=== PATIENT | female | born 1990 | race Caucasian/White ===

== ENCOUNTER 2018-04-17 07:50 | Emergency (ER) | payer MEDICAID, SELFPAY ==
[2018-04-17 07:57] VITALS: BP 138/75; PULSE 68; RESP 16; TEMP 37; O2SAT 100
--- NOTE | 2018-04-17 08:22 | DI.RAD_ITS ---
SYMPTOM/DIAGNOSIS: COUGH 4 DAYS, CHEST DISCOMFORT PA AND LATERAL CHEST: 04/17/18 The heart is normal in size. The lungs are clear. The mediastinal structures and pleura appear intact. CONCLUSION: Normal chest.
--- NOTE | 2018-04-17 08:28 | ED.GENADUL_ITS ---
Discharge Plan Disposition Patient Disposition: HOME Discharge Details Chief Complaint: RespSymp Clinical Impression: Cough, Abrasion of right ear canal, Upper respiratory infection Primary Care Provider: Savanah Dove ED Provider: Giovanni Nunez Home Meds and New Rx's Prescriptions: No Action calcium carbonate [Calcium 600] 600 MG tablet 600 mg PO DAILY RF: 0 erythromycin 3.5 GM ointment 3.5 gm OS TID Qty: 1 RF: 0 tramadol 50 MG tablet 50 mg PO TID Qty: 10 RF: 0 Discharge Instructions Instructions: Upper Respiratory Infection (ED), Acute Cough (ED) Additional Instructions: Please contact your primary care physician to arrange follow-up. Return to the ER for any worsening or new concerning symptoms. Stand Alone Forms: Work Release Discharge Data Discharge Date/Time-TO BE ENTERED AT DEPARTURE: 04/17/18 09:05 Medical Decision Making 8:25 --27-year-old female here with cough for 4 days. Lungs clear to auscultation bilaterally. Saturating well no respiratory distress Patient also with some bleeding from her right ear. Unable to visualize tympanic membranes as external ear canal completely obstructed with impacted cerumen. There is a superficial abrasion to her right external canal that is the source of the bleeding. Bleeding has stopped. --Chest x-ray reviewed and interpreted by radiology: normal chest Suspect URI --Usual and customary discharge instructions were provided. Patient was instructed to maintain supportive care and allow for plenty of rest. She understands that she should return immediately should she have any worsening or new concerning symptoms. HPI General Mode of arrival: ambulatory . Date/Time Provider Initiated Documentation: 04/17/18 08:13 . Limitations to Documentation: no limitations . Information obtained by: patient . HPI Narrative: 27-year-old female presents with chief complaint of cough. Patient notes she has had cough for the past 4 days. Cough is nonproductive. No associated shortness of breath. She does have associated body aches and has had some pleuritic chest discomfort that is worse with coughing as well as discomfort in her upper abdomen with coughing. Symptoms are moderate. No modifiers. She also notes that she has had some bleeding from her right ear that started on the way home from work today. No associated fever. No ear pain. Related Data Home Medications Medication Instructions Recorded Confirmed calcium carbonate [Calcium] 600 mg PO DAILY 09/26/12 04/17/18 erythromycin 3.5 gm OS TID #1 tube 09/26/12 04/17/18 tramadol 50 mg PO TID #10 tab 09/26/12 04/17/18 Previous Rx's Medication Instructions Recorded erythromycin 3.5 gm OS TID #1 tube 09/26/12 tramadol 50 mg PO TID #10 tab 09/26/12 Allergies Allergy/AdvReac Type Severity Reaction Status Date / Time No Known Allergies Allergy Unverified 04/17/18 08:01 General Stated Complaint: RespSymp RONY: 4 Review of Systems Review of Systems All systems reviewed & are unremarkable except as noted in HPI and below Cardiovascular Denies dyspnea Respiratory Reports cough and Denies dyspnea PFSH Social History Smoking/Tobacco Use Status: Never Exam Const General: cooperative and no acute distress HENMT Head: normocephalic and atraumatic Ears: mastoids normal, no periauricular adenopathy, EAC abnormal cerumen impaction bilaterally and other (superficial abrasion with no active bleeding) and unable to visualize TM (cerumen impaction) bilaterally General nose exam: external nose normal Mouth: moist mucous membranes Throat: posterior oropharynx normal Eyes Conjunctivae: normal conjunctivae Sclera: normal sclerae EOM: EOM intact bilaterally Neck Neck: trachea midline and supple Resp Auscultation: clear to auscultation bilaterally, no rales, no rhonchi and no wheezes Cardio Jugular venous pressure: no JVD Rate: regular rate and not tachycardic Rhythm: regular rhythm GI Palpation: soft, not firm, no guarding, no masses, not rigid and nontender Skin General skin exam: no rashes or lesions noted Neuro General: alert, awake, oriented x3 and tone normal Extrem General: no edema Psych Appearance: grossly normal Mental Status: mental status grossly normal Speech and Movement: speech and movement normal Course Vital Signs Temperature 37 C 04/17/18 07:57 Pulse 68 04/17/18 07:57 Respiratory Rate 16 04/17/18 07:57 Blood Pressure 138/75 04/17/18 07:57 Pulse Oximetry 100 04/17/18 07:57 Temperature 37 C 04/17/18 07:57 Temperature Source Skin 04/17/18 07:57 Pulse 68 04/17/18 07:57 Respiratory Rate 16 04/17/18 07:57 Respiratory Effort Non-Labored 04/17/18 08:02 Respiratory Depth Normal 04/17/18 08:02 Blood Pressure 138/75 04/17/18 07:57 Blood Pressure Position Sitting 04/17/18 07:57 Pulse Oximetry 100 04/17/18 07:57 Oxygen Delivery Method Room Air 04/17/18 07:57 Oxygen Flow Rate 0 04/17/18 07:57 Pain Level 3 04/17/18 07:57
== END 2018-04-17 09:05 | disposition home or self-care (01) ==
PROVIDERS: Emergency Provider Student in an Organized Health Care Education/Training Program; PCP Nurse Practitioner Family
DX: R05 Cough (principal); S00.411A Abrasion of right ear, initial encounter; J06.9 Acute upper respiratory infection, unspecified; X58.XXXA Exposure to other specified factors, initial encounter
CPT/HCPCS: 99283; 71046; 99282

== ENCOUNTER 2018-06-19 12:23 | Outpatient (CLI) | payer MEDICAID, SELFPAY ==
--- NOTE | 2018-06-19 08:00 | DI.RAD_ITS ---
SYMPTOM/DIAGNOSIS: RT FINGER PAIN, M79.644, PT FEELS LUMP RIGHT HAND: Comparison is made with 07/10/08. No fracture or dislocation is seen. There is no evidence of foreign body. There may be some soft tissue swelling of the volar aspect of the finger. There is a smoothly marginated lucency in the proximal phalanx near the area marked. No suspicious findings are seen. IMPRESSION: Question of ventral soft tissue swelling over the area of the proximal phalanx.
== END 2018-06-19 12:43 ==
PROVIDERS: PCP Nurse Practitioner Family; Visit Provider Nurse Practitioner Family
DX: M79.644 Pain in right finger(s) (principal); M79.89 Other specified soft tissue disorders
CPT/HCPCS: 73130

== ENCOUNTER 2018-07-17 09:51 | Outpatient (CLI) | payer MEDICAID, SELFPAY ==
--- NOTE | 2018-07-17 09:25 | DI.RAD_ITS ---
SYMPTOM/DIAGNOSIS: RT HAND PAIN RIGHT HAND: Comparison is made with 06/19/18. A sponge is seen between the second and third fingers. No fracture or subluxation is seen.
== END 2018-07-17 10:11 ==
PROVIDERS: PCP Nurse Practitioner Family; Visit Provider Physician Assistant
DX: M79.641 Pain in right hand (principal)
CPT/HCPCS: 73120

== ENCOUNTER 2018-08-18 02:15 | Outpatient (CLI) | payer MEDICAID, SELFPAY ==
--- NOTE | 2018-08-18 14:00 | DI.US_ITS ---
SYMPTOMS/DIAGNOSIS: RIGHT BREAST CYST, N60.01, PAINFUL MASS X 2 WEEKS, OUTER ASPECT OF RIGHT BREAST AT 5 O'CLOCK RIGHT BREAST ULTRASOUND: There is a small palpable abnormality in the medial aspect of the chest wall adjacent to the breast, which appears superficial. The palpable abnormality corresponds to a 4 x 2 x 2 mm hypoechoic ovoid area, which is in a subcutaneous location. There is no vascularity. There is a question of a tract to the skin. The findings could represent a small sebaceous cyst.
== END 2018-08-18 02:35 ==
PROVIDERS: PCP Nurse Practitioner Family; Visit Provider Nurse Practitioner Family
DX: N60.01 Solitary cyst of right breast (principal); R22.2 Localized swelling, mass and lump, trunk
CPT/HCPCS: 76642

== ENCOUNTER 2018-11-02 10:18 | Outpatient (REF) | payer MEDICAID, SELFPAY ==
--- NOTE | 2018-11-02 09:30 | PAPFT_PTH ---
PATIENT: Debbie Sainz LOC: [facility] U#:[id number] AGE/SX: 28/F ROOM: RE11/02/[address]: Sukumar Peter : 1990 BED: DIS: 11/02/2018 SPEC #: [id number] RECD: 11/02/18 17:59 STATUS: EDGAR REQ #: [id number] SIDNEY: 11/02/18 09:[address]: Sukumar Peter DEPT: [facility] Cytology RECD BY: Lisa Mann Tissues: 1 - CX/ENDOCX FOR PAP SMEARS Procedures: PAP THIN PREP/UVM Screening HPV DNA PROBE Comments: [id number]
== END 2018-11-02 10:38 ==
LOC: NCHCN 10:18
PROVIDERS: PCP Nurse Practitioner Family; Visit Provider Nurse Practitioner Family
DX: Z12.4 Encounter for screening for malignant neoplasm of cervix (principal); Z11.51 Encounter for screening for human papillomavirus (HPV)
CPT/HCPCS: 88142; 87624

== ENCOUNTER 2020-05-28 15:19 | Outpatient (REF) | payer MEDICAID, SELFPAY ==
[2020-05-29 16:32] LABS: COVID-19 RT-PCR UVMMC Result Positive (Negative)
== END 2020-05-28 15:20 | disposition home or self-care (01) ==
LOC: NCHCN 15:19
PROVIDERS: PCP Nurse Practitioner Family; Visit Provider Physician Assistant Medical
DX: Z20.828 Contact with and (suspected) exposure to other viral communicable diseases (principal)
CPT/HCPCS: U0003

== ENCOUNTER 2020-08-04 13:56 | Outpatient (REF) | payer MEDICAID, SELFPAY ==
[2020-08-04 17:06] LABS: ALT 33 U/L (14-59); AST 14 U/L (15-37); Albumin 3.6 g/dL (3.4-5.0); Alkaline Phosphatase 78 U/L (46-116); Anion Gap 11.2 mmol/L (3-11); BUN 9 mg/dL (7-18); Bilirubin, Total 0.4 mg/dL (0.2-1.0); CO2 24.8 mmol/L (21.0-32.0); CREATININE 0.6 mg/dL (0.55-1.02); Calcium 8.4 mg/dL (8.5-10.1); Calculated LDL 61 mg/dL (<100); Chloride 109 mmol/L (98-107); Cholesterol 122 mg/dL (<200); Glucose 73 mg/dL (74-106); HDL Cholesterol 32 mg/dL (40-60); Sodium 145 mmol/L (136-145); Total Protein 7.1 g/dL (6.4-8.2); Triglyceride 149 mg/dL (<150)
[2020-08-04 17:22] LABS: Bacteria Moderate HPF (Negative); C & S Indicated? No/Sq. Contamination; Casts Negative LPF (Negative); Crystals Negative HPF (Negative); Epithelial Cells Many HPF (Negative); Mucus Negative (Negative); Other Cells Negative (Negative); RBC Negative HPF (0-2); WBC 0-2 HPF (0-5)
[2020-08-06 10:07] LABS: HIV-1/2 Ag & Ab Screen Negative (Negative)
[2020-08-06 10:22] LABS: Hepatitis C Ab w Rflx HCV PCR Negative (Negative)
== END 2020-08-04 13:57 | disposition home or self-care (01) ==
LOC: NCHCN 13:56
PROVIDERS: PCP Nurse Practitioner Family; Visit Provider Nurse Practitioner Family
DX: Z13.220 Encounter for screening for lipoid disorders (principal); Z13.228 Encounter for screening for other metabolic disorders; Z11.4 Encounter for screening for human immunodeficiency virus [HIV]; Z11.59 Encounter for screening for other viral diseases; Z68.41 Body mass index [BMI] 40.0-44.9, adult; R31.9 Hematuria, unspecified
CPT/HCPCS: 80053; 80061; 86803; 87389; 81015

== ENCOUNTER 2021-04-26 20:16 | Emergency (ER) | payer MEDICAID, SELFPAY ==
--- NOTE | 2021-04-26 20:15 | DI.CT_ITS ---
Exam(s) CT HEAD WO EXAM: CT HEAD WO CLINICAL HISTORY: pain s/p fall. TECHNIQUE: Imaging Protocol: Axial computed tomography images with coronal and sagittal reformatted images were created and reviewed COMPARISON: No exams were available for comparison FINDINGS: Ventricles and Extra axial spaces: Normal in size and morphology for the patient's age. Hemorrhage: None. Cerebral parenchyma: Normal. Midline shift: None. Brainstem/Cerebellum: Normal. Calvarium: Normal. Visualized Paranasal sinuses/Mastoids: Mucous retention maxillary sinuses. Soft Tissues: Skin lesions near vertex. IMPRESSION: No acute intracranial process. RADIATION DOSE DELIVERED: 771.02mGy.cm Total DLP DATA REPOSITORY: All CT scans at this facility are submitted to the National Radiology Data Registry (NRDR) Dose Index Registry (DIR) with the [employer] (A[employer]). RADIATION OPTIMIZATION: All CT scans at this facility use at least one of these dose optimization te chniques: automated exposure control; mA and/or kV adjustment per patient size (includes targeted exa ms where dose is matched to clinical indication); or iterative reconstruction.
[2021-04-26 20:19] VITALS: BP 160/101; PULSE 85; RESP 18; TEMP 36.5; O2SAT 98
--- NOTE | 2021-04-26 20:26 | ED.GENADUL_ITS ---
Discharge Plan Disposition Patient Disposition: HOME Condition: Stable Discharge Details Clinical Impression: Blunt head trauma Primary Care Provider: Sukumar Peter ED Provider: Avery Younger Home Meds and New Rx's Prescriptions: Continued medroxyprogesterone [Depo-Provera] 150 mg/mL suspension 150 mg IM [id number] RF: 0 calcium carbonate [Calcium 600] 600 MG tablet 600 mg PO DAILY RF: 0 Discharge Instructions Additional Instructions: your cat scan did not show any significant injury to the head for pain you can take 1000mg tylenol and 600mg ibuprofen every 6 hours as needed if you have severe worsening pain, persistent vomit or feel more ill return to the emergency department if you have mild headaches or issues with memory this week follow up with your primary care provider Medical Decision Making 30 yo female was at work and there was water on the floor and she slipped on it falling back and hitting her head on the floor. Denies loc and denies preceding symptoms to the fall. She has a 2cm abrasion to the posterior head, no palpable skull fracture, no c spine tenderness with full rom, no chest or abdomen tenderness nor pain in the extremities, normal gait and no neuro deficits. Suspect mild tbi but given she states pain is moderate will obtain ct head to evaluate further. Wound is superficial and does not require sutures or kvng ct negative, noted cutaneous lesions which on exam were dry skin flakes. She is stable for d/c and return precautions given Differential Diagnosis Differential Diagnosis: lac, tbi Imaging Data Radiologic Study: Attestation: I personally reviewed and interpreted this imaging study as follows: Imaging: CT Scan Radiologist's impression: IMPRESSION: 1. No acute intracranial hemorrhage, mass effect or midline shift. 2. Small cutaneous lesions noted at the vertex measuring up to 8 mm. Correlate with physical examination findings. HPI General Mode of arrival: ambulatory . Date/Time Provider Initiated Documentation: 04/26/21 20:18 . Limitations to Documentation: no limitations . Information obtained by: patient . History of Present Illness 30 year old F presents to the emergency department with the chief complaint of head pain, described as moderate, with intensity rated at 6. Quality is described as aching, and is localized to the head. Patient reports no radiation. Patient started experiencing this hour(s) (1) and it has been constant. No relieving factors improve symptom(s), No exacerbating factors reported . Patient notes no other symptoms.. Patient did receive the following treatments prior to arrival, none Related Data Home Medications Medication Instructions Recorded Confirmed calcium carbonate [Calcium 600] 600 mg PO DAILY 09/26/12 04/26/21 medroxyprogesterone 150 mg/mL 150 mg IM [id number] 09/08/18 04/26/21 intramuscular suspension Allergies Allergy/AdvReac Type Severity Reaction Status Date / Time No Known Allergies Allergy Unverified 09/15/18 13:58 General Stated Complaint: Laceration RONY: 4 Review of Systems All systems reviewed & are unremarkable except as noted in HPI and below Constitutional Constitutional: Denies chills, Denies fever(s) and Denies weakness Cardiovascular Cardiovascular: Denies chest pain and Denies dyspnea Respiratory Respiratory: Denies cough and Denies dyspnea Gastrointestinal Gastrointestinal: Denies abdominal pain, Denies nausea and Denies vomiting Musculoskeletal Musculoskeletal: Denies joint swelling Neurologic Neurologic: Denies weakness PFSH All Active Problems (Updated 04/26/21 @ 21:14 by Avery Younger MD) Blunt head trauma (Acute) Sprain of metacarpophalangeal joint of right index finger (Chronic) UCL sprain RIF Medical History (Updated 04/26/21 @ 21:14 by Avery Younger MD) Cyst, breast solitary Depression with anxiety Scabies Social History Smoking/Tobacco Use Status: Never Smoking risk assessment performed?: Yes Alcohol Intake: current Alcohol Intake frequency: holidays/special occasions only Alcohol type: wine Drug use: Never Substance use type: does not use Do you feel safe at home: Yes Do you feel safe in your relationship?: Yes Exam Const General: no acute distress Orientation: alert [facility] Head: no palpable skull fracture Ears: external ears normal General nose exam: external nose normal Mouth: moist mucous membranes Eyes General: appearance normal, both eyes and all related structures Neck Neck: normal visual inspection Resp Effort & Inspection: normal respiratory effort and able to speak in complete sentences Cardio Rate: regular rate Skin General skin exam: no rashes or lesions noted Neuro General: patient alert and patient oriented x3 Extrem General: normal to inspection Psych Mental Status: mental status grossly normal Course Vital Signs Vital signs: Vital Signs Temperature 36.5 C 04/26/21 20:19 Pulse 85 04/26/21 20:19 Respiratory Rate 18 04/26/21 20:19 Blood Pressure 160/101 H 04/26/21 20:19 Pulse Oximetry 98 04/26/21 20:19 Temperature 36.5 C 04/26/21 20:19 Temperature Source Temporal Artery Scan 04/26/21 20:19 Pulse 85 04/26/21 20:19 Respiratory Rate 18 04/26/21 20:19 Respiratory Effort 04/26/21 20:22 Blood Pressure 160/101 H 04/26/21 20:19 Blood Pressure Position Sitting 04/26/21 20:19 Pulse Oximetry 98 04/26/21 20:19 Oxygen Delivery Method Room Air 04/26/21 20:19 Oxygen Flow Rate 0 04/26/21 20:19 Pain Level 5 04/26/21 20:19
[2021-04-26] MEDS: Ibuprofen 600 MG TAB PO (20:32)
[2021-04-26] MEDS: Lidocaine/Epinephri/Tetracaine Topical Gel 3 ML TP (20:33)
--- NOTE | 2021-04-26 21:08 | DI.VRAD_ITS ---
PROCEDURE INFORMATION: Exam: CT Head Without Contrast Exam date and time: 04/26/2021 8:27 PM Age: 30 years old Clinical indication: Injury or trauma; Work related; Blunt trauma (contusions or hematomas); Without loss of consciousness; Injury date: 04/26/21; Injury details: Pain S/P fall, laceration TECHNIQUE: Imaging protocol: Computed tomography of the head without contrast. Radiation optimization: All CT scans at this facility use at least one of these dose optimization techniques: automated exposure control; mA and/or kV adjustment per patient size (includes targeted exams where dose is matched to clinical indication); or iterative reconstruction. COMPARISON: No relevant prior studies available. FINDINGS: Brain: There is no acute intracranial hemorrhage, mass effect or midline shift. There is no large acute territorial cerebral infarct. Cerebral ventricles: No ventriculomegaly. Paranasal sinuses: Visualized sinuses are unremarkable. No fluid levels. Mastoid air cells: Visualized mastoid air cells are well aerated. Bones/joints: No acute fracture. Soft tissues: There are small cutaneous lesions noted at the vertex measuring up to 8 mm (image 58, series 6). IMPRESSION: 1. No acute intracranial hemorrhage, mass effect or midline shift. 2. Small cutaneous lesions noted at the vertex measuring up to 8 mm. Correlate with physical examination findings. Dictated and Authenticated by: Kathleen Vasquez MD. Ordering:CORY Varela MD
== END 2021-04-26 21:19 | disposition home or self-care (01) ==
LOC: ER 21:23
PROVIDERS: Emergency Provider Emergency Medicine; PCP Nurse Practitioner Family
DX: S09.8XXA Other specified injuries of head, initial encounter (principal); W01.0XXA Fall on same level from slipping, tripping and stumbling without subsequent striking against object, initial encounter
CPT/HCPCS: 99284; 70450; 99283

== ENCOUNTER 2021-04-29 13:19 | Emergency (ER) | payer MEDICAID, SELFPAY ==
[2021-04-29 13:25] VITALS: BP 172/115; PULSE 94; RESP 14; TEMP 36.9; O2SAT 100
--- NOTE | 2021-04-29 13:58 | NUR.NOTE ---
Faxed referral to [facility]-Neurology for post concussion syndrome next week or so per Dion Bey.
--- NOTE | 2021-04-29 14:00 | NUR.NOTE ---
Put the referral in the managed care manager's box for follow-up.
--- NOTE | 2021-04-29 14:03 | ED.GENADUL_ITS ---
Discharge Plan Disposition Patient Disposition: HOME Condition: Stable Discharge Details Clinical Impression: Post concussive syndrome Primary Care Provider: Sukumar Peter ED Provider: Dion Bey Home Meds and New Rx's Prescriptions: Continued medroxyprogesterone [Depo-Provera] 150 mg/mL suspension 150 mg IM [id number] RF: 0 Discharge Instructions Instructions: Post Concussion Syndrome (ED) Additional Instructions: At this time your work-up reveals that you are neurologically intact. I recommend [id number] Tylenol and/or Motrin as directed for discomfort. Please watch for new or worsening symptoms and return to the ER for any concerns. I have placed you on the neurology list, please contact their office with her today or tomorrow to discuss your ongoing symptoms and need for outpatient reevaluation Stand Alone Forms: Work Release Referrals: Karo Correa MD [ [facility] STAFF PHYSICIAN] - Medical Decision Making 30-year-old female with a mechanical slip and fall on April 26, seen in the ER for a head injury and had a negative head CT. Since that time she has had ongoing intermittent symptoms. Went to work today and they recommended coming to the ER for further evaluation given her ongoing symptoms. Clinically she appears well, nontoxic, neurologically intact. Visual acuities are rather reassuring. She has not had any subsequent injury since her initial fall. At this time I see indication for repeat emergent CT imaging. Patient is likely having lingering symptoms from her initial head injury, postconcussive syndrome. Will recommend brain rest, provide a work note for the rest of today, and refer her to our neurology team. We will place her on the neurology list. Recommend that she continue [id number] Tylenol and/or Motrin. Strict discharge and return precautions were provided This documentation was generated using [employer] system, please disregard any oddities of phrase or misspellings. Medical Records Medical records reviewed: Yes I reviewed the patient's medical records. HPI General Mode of arrival: ambulatory . Date/Time Provider Initiated Documentation: 04/29/21 13:20 . Limitations to Documentation: no limitations . Information obtained by: patient . HPI Narrative: This is a 30-year-old female, past medical history of anxiety and depression, presenting to the ER for a head injury recheck. Patient had a mechanical slip and fall on April 26, was seen in the ER at that time and had a negative CT. Subsequently discharged but since that time has ongoing mild global headache, she states double vision if focusing very hard on something, intermittent mild blurry vision, left eye may be slightly worse in the right eye. She reports anterior muscular neck pain worse with movement. Patient states that she simply does not feel like herself. She used the word dizziness but denies feeling like the room is spinning. States that she feels slightly off or off balance. Mild nausea but no vomiting. She did take [id number] Tylenol for her discomfort. Patient states that she went to work today and told her work that she was not feeling well from her injury the other day and they recommended coming to the ER for reevaluation and obtaining a work note as she will not be working this evening. She denies any additional injury, recent fever, chest pain, shortness of breath, abdominal pain, bowel or bladder changes, numbness, tingling, weakness Related Data Home Medications Medication Instructions Recorded Confirmed medroxyprogesterone 150 mg/mL 150 mg IM [id number] 09/08/18 04/29/21 intramuscular suspension Allergies Allergy/AdvReac Type Severity Reaction Status Date / Time No Known Allergies Allergy Unverified 04/29/21 13:31 General Stated Complaint: HeadInjury RONY: 3 Review of Systems Constitutional Constitutional: Denies fatigue, Reports headache(s) and Denies weakness Eyes Eyes: Reports change in vision ENT Ears, Nose, Mouth, and Throat: Denies vertigo, Reports headache(s) and Reports neck pain Cardiovascular Cardiovascular: Denies chest pain and Denies dyspnea Respiratory Respiratory: Denies dyspnea Gastrointestinal Gastrointestinal: Denies abdominal pain, Reports nausea and Denies vomiting Musculoskeletal Musculoskeletal: Reports neck pain, Denies numbness and Denies tingling Integumentary/Breasts Skin/Breast: Denies rash Neurologic Neurologic: Denies confusion, Denies vertigo, Reports headache(s), Denies localized weakness, Denies numbness, Denies tingling and Denies weakness Psychiatric Psychiatric: Denies confusion Endocrine Endocrine: Denies fatigue PFSH All Active Problems Blunt head trauma (Acute) Post concussive syndrome (Acute) Sprain of metacarpophalangeal joint of right index finger (Chronic) UCL sprain RIF Medical History Cyst, breast solitary Depression with anxiety Scabies Social History Smoking/Tobacco Use Status: Never Smoking risk assessment performed?: Yes Alcohol Intake: current Alcohol Intake frequency: holidays/special occasions only Alcohol type: wine Drug use: Never Substance use type: does not use Do you feel safe at home: Yes Do you feel safe in your relationship?: Yes Exam Const General: cooperative, healthy appearing, comfortable and no acute distress Orientation: alert, awake and oriented x3 HENMT Head: normal to inspection, normocephalic and atraumatic Ears: external ears normal, TM's normal bilaterally and EAC's normal Face and sinus: normal facial exam Mouth: moist mucous membranes Throat: posterior oropharynx normal Eyes General: appearance normal, both eyes and all related structures Alignment and Position: alignment normal Periorbital: periorbital findings normal Eyelids: eyelids normal Conjunctivae: conjunctivae normal Sclera: sclerae normal Cornea: corneas normal Pupils: PERRL EOM: EOM intact bilaterally Direct ophthalmoscopy: normal light reflex Neck Neck: normal visual inspection, full ROM, no lymphadenopathy, no meningeal signs, trachea midline, supple and tender Other: Diffuse, mild, anterior neck, soft tissue. Full range of motion. No spasm, erythema or ecchymosis Resp Effort & Inspection: normal respiratory effort and able to speak in complete sentences Auscultation: clear to auscultation bilaterally Cardio Rate: regular rate Rhythm: regular rhythm Back/Spine/Pelvis Back: No back tenderness Skin General skin exam: no rashes or lesions noted Neuro General: patient alert, patient awake, patient oriented x3, moves all extremities and no focal motor deficits Cognition: normal cognition Speech: speech normal Gait: normal gait Motor: muscle tone normal throughout, strength 5/5 throughout, no pronator d rift, no movement abnormalities noted and no fasciculations Sensory Exam: no sensory deficits noted Coordination: [id number]-[id number] test normal, [id number] test normal, Romberg test normal and Does not sway with eyes open Extrem General: normal to inspection, full ROM and capillary refill normal Psych Appearance: grossly normal Mental Status: mental status grossly normal Course Vital Signs Vital signs: Vital Signs Temperature 36.9 C 04/29/21 13:25 Pulse 94 H 04/29/21 13:25 Respiratory Rate 14 04/29/21 13:25 Blood Pressure 172/115 H 04/29/21 13:25 Pulse Oximetry 100 04/29/21 13:25 Temperature 36.9 C 04/29/21 13:25 Temperature Source Skin 04/29/21 13:25 Pulse 94 H 04/29/21 13:25 Respiratory Rate 14 04/29/21 13:25 Respiratory Effort 04/29/21 13:33 Respiratory Depth Normal 04/29/21 13:33 Blood Pressure 172/115 H 04/29/21 13:25 Blood Pressure Position Sitting 04/29/21 13:25 Pulse Oximetry 100 04/29/21 13:25 Oxygen Delivery Method Room Air 04/29/21 13:25 Oxygen Flow Rate 0 04/29/21 13:25 Pain Level 0 04/29/21 13:25 Comment has not taken otc medications 04/29/21 13:25
[2021-04-29 14:06] VITALS: BP 152/85
== END 2021-04-29 14:15 | disposition home or self-care (01) ==
PROVIDERS: Emergency Provider Physician Assistant; PCP Nurse Practitioner Family
DX: S09.8XXA Other specified injuries of head, initial encounter (principal); F07.81 Postconcussional syndrome; W00.0XXA Fall on same level due to ice and snow, initial encounter
CPT/HCPCS: 99282; 99283

== ENCOUNTER 2021-10-16 20:03 | Outpatient (REF) | payer MEDICAID, SELFPAY ==
[2021-10-18 10:59] LABS: COVID-19 RT-PCR UVMMC Result Negative (Negative)
== END 2021-10-16 20:04 | disposition home or self-care (01) ==
LOC: LBN 20:03
PROVIDERS: PCP Nurse Practitioner Family; Visit Provider Physician Assistant Medical
DX: Z20.822 Contact with and (suspected) exposure to COVID-19 (principal); R09.89 Other specified symptoms and signs involving the circulatory and respiratory systems
CPT/HCPCS: U0003

== ENCOUNTER 2022-12-17 18:27 | Emergency (ER) | payer OTHER, SELFPAY ==
[2022-12-17 19:14] VITALS: BP 161/89; PULSE 72; RESP 22; TEMP 37.3; O2SAT 99
--- NOTE | 2022-12-17 19:35 | ED.GENADUL_ITS ---
Discharge Plan Disposition Patient Disposition: Home Condition: Stable Discharge Details Clinical Impression: Avulsion fracture of ankle Primary Care Provider: LINWOOD GRUBER ED Provider: Ange Ellsworth Home Meds and New Rx's Prescriptions: Continued medroxyprogesterone [Depo-Provera] 150 mg/mL suspension 150 mg IM [id number] magnesium oxide 400 mg magnesium capsule 400 mg PO QHS Qty: 90 2RF Discharge Instructions Instructions: Ankle Fracture (DC), Crutch Instructions (ED) Additional Instructions: ice to affected area 20-30 minutes 4-5 times daily crutches for non-weight bearing, wear boot for stability ibuprofen 600 mg 4 times daily with food for 5 days, then as needed for pain can add acetaminophen 650 mg 4 times daily for breakthrough pain Stand Alone Forms: Work Release Referrals: [facility] [Provider Group] Discharge Data Discharge Date/Time-TO BE ENTERED AT DEPARTURE: 12/17/22 21:37 Medical Decision Making Injury while at work mechanical fall rolling right ankle. Now has pain and swelling. Has been ambulatory. Will obtain x-ray provide ice pack. X-ray concerning for possible avulsion fracture. She been given a pneumatic boot with crutches crutch walking instructions provided for nonweightbearing until cleared by orthopedics. She should ice NSAIDs and follow-up outpatient with orthopedics Medical Records Medical records reviewed: Yes I reviewed the patient's medical records. Imaging Data Radiologic Study: Imaging: X-Ray Radiologist's impression: Exam(s) PROCEDURE INFORMATION: Exam: XR Right Ankle Exam date and time: 12/17/2022 8:30 PM Age: 32 years old Clinical indication: Other: Pain swelling lateral malleolus TECHNIQUE: Imaging protocol: Radiologic exam of the right ankle. Views: 3 or more views. COMPARISON: No relevant prior studies available. FINDINGS: Bones/joints: Tiny displaced sliver of cortex off of the lateral aspect of the talus. See series 2, image 1. This may represent a minor ligamentous avulsion. Distal fibula is intact. Distal tibia is intact. No dislocation. Ankle mortise is unremarkable. No arthritic features. Sclerotic focus of the distal tibia at the base of the medial malleolus measuring 7 mm is most likely benign bone island. Soft tissues: Soft tissue swelling surrounding the ankle. No gas or foreign body. IMPRESSION: 1. ? Soft tissue swelling. 2. ? Minor cortical avulsion suggested off of the medial aspect of the talus. Series 2, image 1. This could represent a minor ligamentous insertion avulsion fracture. 3. ? Preserved joint space. Dictated and Authenticated by: Jorge Alberto Crabtree MD. Ordering:JT Cassidy MD [facility] General Date/Time Provider Initiated Documentation: 12/17/22 19:35 . Limitations to Documentation: no limitations . Information obtained by: patient . HPI Narrative: ankle injury while working, injury and pain to right ankle, no other injury mechanical fall Related Data Home Medications Medication Instructions Recorded Confirmed medroxyprogesterone 150 mg/mL 150 mg IM [id number] 09/08/18 12/17/22 intramuscular suspension (Depo-Provera) magnesium oxide 400 mg PO QHS #90 caps 05/28/21 12/17/22 Previous Rx's Medication Instructions Recorded magnesium oxide 400 mg PO QHS #90 caps 05/28/21 Allergies Allergy/AdvReac Type Severity Reaction Status Date / Time No Known Allergies Allergy Unverified 12/17/22 19:14 General Stated Complaint: Orthopedic RONY: 5 Review of Systems All systems reviewed & are unremarkable except as noted in HPI and below PFSH All Active Problems (Updated 12/17/22 @ 21:10 by Ange Ellsworth NP) Avulsion fracture of ankle (Acute) Frequent headaches (Acute) Sprain of metacarpophalangeal joint of right index finger (Chronic) UCL sprain RIF Medical History (Updated 12/17/22 @ 21:10 by Ange Ellsworth NP) Cyst, breast solitary Depression with anxiety Scabies Social History Smoking/Tobacco Use Status: Never Smoking risk assessment performed?: Yes Alcohol Intake: current Alcohol Intake frequency: holidays/special occasions only Alcohol type: wine Drug use: Never Substance use type: does not use Do you feel safe at home: Yes Do you feel safe in your relationship?: Yes Exam Const General: cooperative, healthy appearing and comfortable Nutritional Appearance: overweight Orientation: alert and awake HENAK Head: normal to inspection, normocephalic and atraumatic Mouth: oral mucosae normal Resp Effort & Inspection: normal respiratory effort Cardio Rate: regular rate Rhythm: regular rhythm and other (Strong pedal pulse) Skin General skin exam: no rashes or lesions noted Extrem General: edema (Lateral malleolus) Laterality: right Course Vital Signs Vital signs: Vital Signs Temperature 37.3 C 12/17/22 19:14 Pulse 72 12/17/22 19:14 Respiratory Rate 12/17/22 19:14 Blood Pressure 161/89 H 12/17/22 19:14 Pulse Oximetry 99 12/17/22 19:14 Temperature 37.3 C 12/17/22 19:14 Temperature Source Temporal Artery Scan 12/17/22 19:14 Pulse 72 12/17/22 19:14 Respiratory Rate 12/17/22 19:14 Blood Pressure 161/89 H 12/17/22 19:14 Blood Pressure Position Sitting 12/17/22 19:14 Pulse Oximetry 99 12/17/22 19:14 Oxygen Delivery Method Room Air 12/17/22 19:14 Oxygen Flow Rate 0 12/17/22 19:14 Pain Level 8 12/17/22 19:14
--- NOTE | 2022-12-17 20:34 | DI.RAD_ITS ---
Exam(s) XR ANKLE RT COMPLETE EXAM: XR ANKLE RT COMPLETE CLINICAL HISTORY: pain swelling lateral malleolus. TECHNIQUE: 2D digital imaging was performed of the right ankle. Three images were obtained. AP, la teral and oblique views were obtained. COMPARISON: CR RIGHT ANKLE COMPLETE from 06/25/2009 FINDINGS: BONES: No acute fracture is present. No bony destructive lesion is seen. There is a plantar calcanea l spur. There is a small enthesophyte at the posterior calcaneus. There is a curvilinear density at the medial aspect of the talus seen on the oblique view. There is again seen a bone island in the m edial aspect of the distal tibia. This is unchanged compared to the examination from 06/25/2009. JOINTS: The ankle mortise is normally aligned. The ankle joint is well maintained. SOFT TISSUE: There is soft tissue swelling of the ankle. IMPRESSION: 1. Short curvilinear density at the medial aspect of the talus on the oblique view. This may represe nt a small avulsion fracture. 2. Soft tissue swelling of the ankle. DATA REPOSITORY: RADIATION DOSE DELIVERED:
--- NOTE | 2022-12-17 20:44 | DI.VRAD_ITS ---
PROCEDURE INFORMATION: Exam: XR Right Ankle Exam date and time: 12/17/2022 8:30 PM Age: 32 years old Clinical indication: Other: Pain swelling lateral malleolus TECHNIQUE: Imaging protocol: Radiologic exam of the right ankle. Views: 3 or more views. COMPARISON: No relevant prior studies available. FINDINGS: Bones/joints: Tiny displaced sliver of cortex off of the lateral aspect of the talus. See series 2, image 1. This may represent a minor ligamentous avulsion. Distal fibula is intact. Distal tibia is intact. No dislocation. Ankle mortise is unremarkable. No arthritic features. Sclerotic focus of the distal tibia at the base of the medial malleolus measuring 7 mm is most likely benign bone island. Soft tissues: Soft tissue swelling surrounding the ankle. No gas or foreign body. IMPRESSION: 1. Soft tissue swelling. 2. Minor cortical avulsion suggested off of the medial aspect of the talus. Series 2, image 1. This could represent a minor ligamentous insertion avulsion fracture. 3. Preserved joint space. Dictated and Authenticated by: Jorge Alberto Crabtree MD. Ordering:JT Cassidy MD
[2022-12-17 21:35] VITALS: BP 121/67; PULSE 76; RESP 18; TEMP 36.6; O2SAT 99
--- NOTE | 2022-12-20 11:36 | NUR.NOTE ---
Nursing Note: Patient called stating has appt with ortho on Jan 06. and needs work note until that date. Looked up the work note with Caleb Clement and it states no work until released by ortho. Relayed this to her and she will use the one she already has.
== END 2022-12-17 21:37 | disposition home or self-care (01) ==
PROVIDERS: Emergency Provider Nurse Practitioner Acute Care; PCP Nurse Practitioner Family
DX: S82.891A Other fracture of right lower leg, initial encounter for closed fracture (principal); W19.XXXA Unspecified fall, initial encounter
CPT/HCPCS: 99283; 73610

== ENCOUNTER 2022-12-23 19:50 | Outpatient (REF) | payer MEDICAID, SELFPAY ==
[2022-12-23 21:26] LABS: BUN 12 mg/dL (7-18); CREATININE 0.8 mg/dL (0.55-1.02); Calcium 8.8 mg/dL (8.5-10.1); Chloride 108 mmol/L (98-107); Estimated GFR 99.71 (mL/min/1.73m2); Glucose 131 mg/dL (74-106); Potassium 3.7 mmol/L (3.5-5.1); Sodium 143 mmol/L (136-145)
== END 2022-12-23 19:51 | disposition home or self-care (01) ==
LOC: NCHCN 19:50
PROVIDERS: PCP Nurse Practitioner Family; Visit Provider Nurse Practitioner Family
DX: Z00.00 Encounter for general adult medical examination without abnormal findings (principal)
CPT/HCPCS: 80048

== ENCOUNTER 2023-01-21 11:13 | Outpatient (REF) | payer MEDICAID, SELFPAY ==
[2023-01-21 15:00] LABS: Hemoglobin A1C 5.5 % (<5.7)
== END 2023-01-21 11:14 | disposition home or self-care (01) ==
LOC: NCHCN 11:13
PROVIDERS: PCP Nurse Practitioner Family; Visit Provider Nurse Practitioner Family
DX: Z13.1 Encounter for screening for diabetes mellitus (principal); R73.09 Other abnormal glucose
CPT/HCPCS: 83036

== ENCOUNTER 2024-01-17 09:45 | Outpatient (REF) | payer MEDICAID, SELFPAY ==
[2024-01-17 20:32] LABS: ALT 22 U/L (14-59); AST 20 U/L (15-37); Albumin 3.3 g/dL (3.4-5.0); Alkaline Phosphatase 56 U/L (46-116); Anion Gap 10.7 mmol/L (3-11); BUN 9 mg/dL (7-18); Bilirubin, Total 0.22 mg/dL (0.2-1.0); CO2 22.3 mmol/L (21.0-32.0); CREATININE 0.7 mg/dL (0.55-1.02); Calcium 8.6 mg/dL (8.5-10.1); Calculated LDL 43 mg/dL (<100); Chloride 109 mmol/L (98-107); Cholesterol 98 mg/dL (<200); Estimated GFR 116.31 (mL/min/1.73m2); Glucose 90 mg/dL (74-106); HDL Cholesterol 38 mg/dL (40-60); Sodium 142 mmol/L (136-145); Triglyceride 87 mg/dL (<150)
[2024-01-17 20:33] LABS: Hemoglobin A1C 5.6 % (<5.7)
== END 2024-01-17 09:46 | disposition home or self-care (01) ==
LOC: NCHCN 09:45
PROVIDERS: PCP Nurse Practitioner Family; Visit Provider Nurse Practitioner Family
DX: Z00.00 Encounter for general adult medical examination without abnormal findings (principal)
CPT/HCPCS: 80053; 80061; 83036

== ENCOUNTER 2024-02-22 10:16 | Outpatient (REF) | payer MEDICAID, SELFPAY ==
--- NOTE | 2024-02-22 08:40 | PAPFT_PTH ---
PATIENT: Debbie Sainz LOC: [facility] U#:[id number] AGE/SX: 33/F ROOM: RE02/22/[address]: LINWOOD GRUBER NP : 1990 BED: DIS: 02/22/2024 SPEC #: [id number] RECD: 02/22/24 17:49 STATUS: EDGAR REQ #: [id number] SIDNEY: 02/22/24 08:[address]: LINWOOD GRUBER DEPT: [facility] Cytology RECD BY: Lisa Mann Tissues: 1 - CX/ENDOCX FOR PAP SMEARS Procedures: PAP THIN PREP/UVM Screening HPV DNA PROBE Comments: [id number] (HPV 16 & 18/45)
== END 2024-02-22 10:17 | disposition home or self-care (01) ==
LOC: NCHCN 10:16
PROVIDERS: PCP Nurse Practitioner Family; Visit Provider Nurse Practitioner Family
DX: Z11.51 Encounter for screening for human papillomavirus (HPV) (principal); Z01.419 Encounter for gynecological examination (general) (routine) without abnormal findings
CPT/HCPCS: 88142; 87624

== ENCOUNTER 2024-06-06 13:03 | Outpatient (CLI) | payer MEDICAID, SELFPAY ==
--- NOTE | 2024-06-06 11:40 | DI.RAD_ITS ---
Exam(s) XR RIBS RT PA CHEST 3V EXAM: XR RIBS RT PA CHEST 3V CLINICAL HISTORY: R07.81 Pleurodynia. TECHNIQUE: 2D digital imaging was performed. COMPARISON: CR XR CLAVICLE RT from 06/06/2024 FINDINGS: Total 6 views: Ribs four views-right: There are no right rib fractures identified. No right rib lesions. Ipsilater al clavicle appears unremarkable. Benign bone island noted in the humeral head. Chest x-ray-two views: Heart size upper normal. The mediastinum is not widened. No infiltrates nor pleural effusions. No pneumothorax. IMPRESSION: No acute pulmonary findings. No right rib findings. DATA REPOSITORY: RADIATION DOSE DELIVERED:
--- NOTE | 2024-06-06 11:44 | DI.RAD_ITS ---
Exam(s) XR CLAVICLE RT EXAM: XR CLAVICLE RT CLINICAL HISTORY: M25.519 Pain in RT shoulder. TECHNIQUE: 2D digital imaging was performed. COMPARISON: No exams were available for comparison FINDINGS: Two views No evidence of right clavicle fracture nor osseous lesions. Bone density normal. AC joint and south oclavicular joint appear unremarkable. IMPRESSION: No significant osseous findings in the right clavicle. DATA REPOSITORY: RADIATION DOSE DELIVERED:
== END 2024-06-06 13:23 ==
LOC: DI 13:03
PROVIDERS: PCP Nurse Practitioner Family; Visit Provider Physician Assistant Medical
DX: M25.511 Pain in right shoulder (principal); R07.81 Pleurodynia
CPT/HCPCS: 71046; 71100; 73000

== ENCOUNTER → 2025-03-22 13:53 | Outpatient (CLI) | payer BC, SELFPAY ==
--- NOTE | 2025-03-22 14:13 | DI.RAD_ITS ---
Exam(s) XR CHEST 2V PA LATERAL EXAM: XR CHEST 2V PA LATERAL CLINICAL HISTORY: J20.9 Acute bronchitis TECHNIQUE: 2D digital imaging was performed. Two views. COMPARISON: CR XR RIBS RT PA CHEST 3V from 06/06/2024 FINDINGS: HEART: Normal size. Aorta: Not dilated. PULMONARY VASCULATURE: Normal. MEDIASTINUM: Unremarkable. LUNGS: Clear. PLEURAL SPACE: No pleural effusion or pneumothorax. BONE:Unremarkable for age. SOFT TISSUES: Unremarkable. IMPRESSION: No acute abnormality. DATA REPOSITORY: RADIATION DOSE DELIVERED:
== END ==
PROVIDERS: PCP Nurse Practitioner Family; Visit Provider Nurse Practitioner Family
DX: J02.9 Acute pharyngitis, unspecified (principal)
CPT/HCPCS: 71046